=== PATIENT | female | born 1940 | race Hispanic/Latino ===

== ENCOUNTER 2021-01-24 11:07 | Emergency (ER) | payer MEDICARE ==
[~2021-01-24] VITALS: Ht 152.4 cm; Wt 65.0 kg
[2021-01-24 11:30] VITALS: BP 191/91
[2021-01-24] MEDS ORDERED: SYNTHROID25 MCG PO (11:45)
[2021-01-24] MEDS ORDERED: OMEPRAZOLE20 MG PO (11:46)
[2021-01-24] MEDS ORDERED: EZETIMIBE10 MG PO (11:46)
[2021-01-24] MEDS ORDERED: LISINOPRIL20 MG PO (11:46)
[2021-01-24] MEDS ORDERED: VALACYCLOVIR HCL1 GM PO (12:08)
== END 2021-01-24 13:11 | disposition home or self-care (01) ==
LOC: ED 11:07
DX: B02.9 Zoster without complications (principal); I10 Essential (primary) hypertension; K21.9 Gastro-esophageal reflux disease without esophagitis